=== PATIENT | male | born 1980 | race Caucasian/White ===

== ENCOUNTER 2023-04-30 22:15 | Outpatient (CLI) | payer OTHER, SELFPAY | END 2023-04-30 22:16 | disposition home or self-care (01) | LOC: AMB 05-01 15:55 | PROVIDERS: Visit Provider Family Medicine | DX: S09.90XA Unspecified injury of head, initial encounter (principal); R51.9 Headache, unspecified; W01.190A Fall on same level from slipping, tripping and stumbling with subsequent striking against furniture, initial encounter; Y92.002 Bathroom of unspecified non-institutional (private) residence as the place of occurrence of the external cause | CPT/HCPCS: A0425; A0427 ==